=== PATIENT | male | born 1985 | race Caucasian/White ===

== ENCOUNTER 2017-10-14 15:19 | Emergency (ER) | payer SELFPAY ==
[2017-10-14 15:32] VITALS: BP 136/89
--- NOTE | 2017-10-14 15:56 | RAD ---
Left knee radiographs History: Left knee pain status post twisting injury. Comparison: None. Findings: AP, lateral, and oblique views of the left knee. There is evidence of a knee joint effusion. No acute fracture or dislocation is identified. No significant degeneration is seen. Impression: 1. Knee joint effusion. 2. No acute osseous traumatic injury identified.
--- NOTE | 2017-10-14 16:06 | ED.ADGEN ---
Past History Past Medical History: No Pertinent History Past Surgical History: No Surgical History Alcohol Use: Occasionally Drug Use: None Adult General Chief Complaint Chief Complaint left knee pain HPI HPI Patient is a 32 year old male who presents with left knee pain. He was at work , twisted and felt a pop on the medial side of his knee and then had ongoing pain. Occurred today, pain fully extending or bending greater than 30 degrees. He did not fall or sustain additional injuries. Review of Systems Review of Systems Constitutional: Denies fever or chills [] Eyes: Denies eye pain [] HENT: Denies nasal congestion or sore throat [] Respiratory: Denies cough or shortness of breath [] Cardiovascular: Denies chest pain GI: Denies abdominal pain, nausea, vomiting, or change in stools : Denies dysuria or hematuria [] Musculoskeletal: Denies back pain Integument: Denies rash Neurologic: Denies headache, focal weakness or sensory changes [] Allergies Allergies Allergies Coded Allergies Type Severity Reaction Last Updated Verified No Known Drug Allergies 10/14/17 No Physical Exam Physical Exam Constitutional: Well developed, well nourished, no acute distress, non-toxic appearance. HENT: Normocephalic, atraumatic Eyes: conjunctiva normal, no discharge. Neck:supple Cardiovascular:Heart rate regular with regular rhythm Lungs & Thorax: No respiratory distress Skin: Warm, dry Extremities: left knee with mild knee effusion, ttp along medial/distal knee joint, no erythema or increased warmth, skin is intact, distal pulse 2+. Neurologic: Alert and oriented X 3, normal sensory function, no focal deficits noted. Psychologic: mood normal. Current Patient Data Vital Signs Vital Signs Date Time Temp Pulse Resp B/P (MAP) Pulse Ox O2 Delivery O2 Flow Rate FiO2 10/14/17 15:32 98.3 92 18 100 Room Air EKG EKG [] Radiology/Procedures Radiology/Procedures knee xray: Impression: 1. Knee joint effusion. 2. No acute osseous traumatic injury identified. [] Course & Med Decision Making Course & Med Decision Making Pertinent Labs and Imaging studies reviewed. (See chart for details) XRay performed, pt declined pain meds. Joint effusion noted, neg XRay for fracture. Pt placed in knee immobilizer. Final Impression Final Impression Knee sprain[] Problems: Dragon Disclaimer Dragon Disclaimer This electronic medical record was generated, in whole or in part, using a voice recognition dictation system. CHACORTA SOTO MD Oct 14, 2017 16:06
[2017-10-14] MEDS ORDERED: IBUP800T19 PO (16:09)
[2017-10-14] MEDS ORDERED: HYDR-971 PO (16:09)
== END 2017-10-14 16:17 | disposition home or self-care (01) ==
LOC: ER 15:19
DX: S83.92XA Sprain of unspecified site of left knee, initial encounter (principal); X50.1XXA Overexertion from prolonged static or awkward postures, initial encounter; Y93.89 Activity, other specified; Y99.8 Other external cause status; Y92.89 Other specified places as the place of occurrence of the external cause
CPT/HCPCS: 29505; 73562; 99284